=== PATIENT | female | born 1960 | race Caucasian/White ===

== ENCOUNTER 2016-12-12 21:49 | Emergency (ER) | payer OTHER ==
[~2016-12-12] VITALS: Ht 162.6 cm; Wt 76.0 kg
[~2016-12-12 21:49] MED LIST: ATEN50TA; HYDR25TA6; LISI10TA2; OMEP20CA9; RANI150C11
[2016-12-12 21:56] VITALS: Ht 162.6 cm; Wt 76.0 kg
[2016-12-12] MEDS ORDERED: IBUPROFEN 600 MG TAB PO ONE (22:30)
--- NOTE | 2016-12-12 22:54 | RADRPT ---
PROCEDURE: Chest x-ray. CLINICAL INDICATION: Chest pain. TECHNIQUE: PA view of the chest. COMPARISON: None. FINDINGS: There is mild left basilar atelectasis. No pulmonary edema or conolidation is identified. The cardi ac silhouette is not enlarged. No pleural effusion is seen. There is no pneumothorax. IMPRESSION: 1. No evidence of acute cardiopulmonary disease. RPTAT: HTAR .Yovany Bell MD, MD Date Time Electronically viewed and signed by .Yovany Bell MD, on 12/12/2016 22:54 .R/
--- NOTE | 2016-12-12 22:56 | RADRPT ---
PROCEDURE: Lumbar Spine. CLINICAL INDICATION: Back pain. TECHNIQUE: Three views of the lumbar spine. COMPARISON: None available FINDINGS: Fusion of the L3 and L4 vertebral bodies, possibly congenital. The lumbar lordosis is preserved with out spondylolisthesis. The vertebral body heights are maintained. No acute fracture or subluxation is seen. There are no significant degenerative changes. IMPRESSION: 1. No acute fracture or subluxation. 2. Fusion of the L3 and L4 vertebral bodies, possibly congenital. RPTAT: HTAR .Yovany Bell MD, Date Time Electronically viewed and signed by .Yovany Bell MD, on 12/12/2016 22:55 .R/
--- NOTE | 2016-12-12 22:58 | RADRPT ---
PROCEDURE: XR Wrist. CLINICAL INDICATION: Pain. TECHNIQUE: 4 views of the left wrist. COMPARISON: None available. FINDINGS: No fracture or dislocation is identified. The joint spaces are preserved. There is no significant soft tissue swelling. IMPRESSION: 1. No fracture or dislocation of the left wrist. RPTAT: HTAR .Yovany Bell MD, Date Time Electronically viewed and signed by .Yovany Bell MD, on 12/12/2016 22:57 .R/
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
[2016-12-12] MEDS ORDERED: CYCL-319 PO (23:13)
[2016-12-12] MEDS ORDERED: IBUP-1542 PO (23:13)
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
== END 2016-12-12 23:58 | disposition home or self-care (01) ==
LOC: FTE 21:49
DX: S29.9XXA Unspecified injury of thorax, initial encounter (principal); S19.9XXA Unspecified injury of neck, initial encounter; S69.92XA Unspecified injury of left wrist, hand and finger(s), initial encounter; I10 Essential (primary) hypertension; V43.52XA Car driver injured in collision with other type car in traffic accident, initial encounter
CPT/HCPCS: 71010; 72100; 72125; 73110; Z7502

== ENCOUNTER 2017-02-28 16:58 | Emergency (ER) | payer OTHER ==
[~2017-02-28] VITALS: Ht 160 cm; Wt 74.0 kg
[~2017-02-28 16:58] MED LIST changes: +CYCL-319 PO; +IBUP-1542 PO
[2017-02-28 17:00] VITALS: Ht 160 cm; Wt 74.0 kg
[2017-02-28] MEDS ORDERED: IBUPROFEN 600 MG TAB PO ONE (18:30)
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
[2017-02-28] MEDS ORDERED: IBUP-1542 PO (20:30)
[2017-02-28 20:42] VITALS: BP 140/82; PULSE 71; RESP 16
== END 2017-02-28 20:45 | disposition home or self-care (01) ==
LOC: FTE 16:58
DX: M54.2 Cervicalgia (principal); M54.6 Pain in thoracic spine; M54.5 Low back pain; I10 Essential (primary) hypertension
CPT/HCPCS: 72040; 72072; 72100; Z7502; Z7610

== ENCOUNTER 2017-05-25 12:12 | Emergency (ER) | END 2017-05-25 15:55 | disposition home or self-care (01) ==

== ENCOUNTER 2017-06-03 11:37 | Emergency (ER) | END 2017-06-03 16:09 | disposition home or self-care (01) ==

== ENCOUNTER 2017-07-03 10:01 | Emergency (ER) | END 2017-07-03 10:40 | disposition home or self-care (01) ==

== ENCOUNTER 2019-01-12 10:16 | Emergency (ER) | payer OTHER ==
[~2019-01-12] VITALS: Ht 157.5 cm; Wt 73.7 kg
[~2019-01-12 10:16] MED LIST changes: +ATEN-51 ORAL; +AZIT250T PO; +CEPH-443 PO; +CLOT30CR24 TOP; -CYCL-319 PO; +CYCL10TA7 PO; +D-ME473S2 PO; +ERYT1OIN6 RIGHT EYE; +LISI10TA2 PO; +NAPR-985 PO; +OXYB5TAB10 ORAL; +PANT40TA3 PO
[2019-01-12 10:19] VITALS: Ht 157.5 cm; Wt 73.7 kg
[2019-01-12] MEDS ORDERED: ONDANSETRON 4 MG INJ IV STA (10:31)
[2019-01-12] MEDS ORDERED: morphine 4 MG/ML VIAL IV STA (10:31)
[2019-01-12 12:56] VITALS: BP 113/67; PULSE 57; RESP 17
== END 2019-01-12 12:57 | disposition home or self-care (01) ==
LOC: E/R 10:16
DX: R10.84 Generalized abdominal pain (principal); I10 Essential (primary) hypertension
CPT/HCPCS: 36415; 74176; 80053; 81003; 83690; 85025; 96374; 96375; J2270; J2405; Z7502; Z7610